=== PATIENT | female | born 1935 | race Two or more races ===

== ENCOUNTER 2022-11-20 05:25 | Emergency (ER) | payer OTHER ==
[~2022-11-20] VITALS: Ht 170.2 cm; Wt 72.6 kg
[2022-11-20 06:29] LABS: CALCIUM, SERUM 9.5 mg/dL (8.5-10.1); POTASSIUM 3.8 mmol/L (3.5-5.1)
[2022-11-20] MEDS ORDERED: MORPHINE SULFATE INJ 2 MG/ML DISP.SYRIN IV ONE (06:30)
[2022-11-20] MEDS ORDERED: ONDANSETRON HCL/PF - ER 4 MG/2 ML VIAL IV ONE (06:30)
[2022-11-20] MEDS ORDERED: IV NS 0.9% 1,000 ML BAG IV ONE (06:30)
[2022-11-20] MEDS ORDERED: MORPHINE SULFATE INJ 4 MG/ML DISP.SYRIN ONE (06:32)
[2022-11-20] MEDS ORDERED: ONDANSETRON HCL/PF 4 MG/2 ML VIAL ONE (06:32)
[2022-11-20 06:34] LABS: ALBUMIN 2.9 g/dL (3.4-5.0); BILIRUBIN,DIRECT 0.3 mg/dL (0.0-0.2); BILIRUBIN,TOTAL 1.1 mg/dL (0.2-1.0); TOTAL PROTEIN, SERUM 7.3 g/dL (6.4-8.2)
[2022-11-20 06:37] LABS: BASOPHILS % (AUTO) 0.1 % (0.0-2.0); EOSINOPHILS % (AUTO) 0.1 % (0.0-6.0); HEMATOCRIT 42 % (33-45); HEMOGLOBIN 14.3 g/dL (11.5-14.8); LYMPHOCYTES # (AUTO) 0.9 K/uL (0.8-4.8); LYMPHOCYTES % (AUTO) 6.8 % (20.0-44.0); MEAN CORPUSCULAR HGB CONC 34 g/dl (31.0-36.0); MEAN CORPUSCULAR VOLUME 90 fL (82-100); MONOCYTES # (AUTO) 0.7 K/uL (0.1-1.30); MONOCYTES % (AUTO) 5.1 % (2.0-12.0); NEUTROPHILS # (AUTO) 11.7 K/uL (1.8-8.9); NEUTROPHILS % (AUTO) 87.9 % (43.0-81.0); PLATELET COUNT (AUTO) 230 K/uL (150-450); RED BLOOD CELL COUNT(AUTO) 4.68 MIL/uL (4.0-5.2); WHITE BLOOD COUNT (AUTO) 13.3 K/uL (4.3-11.0)
--- NOTE | 2022-11-20 06:42 | NUR ---
BLOOD COLLECTED AND SENT TO LAB
--- NOTE | 2022-11-20 08:11 | NUR ---
LAB CALLED TO PROVIDE COVID SWAB
[2022-11-20] MEDS ORDERED: CEFEPIME 1 GM in IV D5W 50 ML IV ONE (09:00)
[2022-11-20] MEDS ORDERED: VANCOMYCIN 1 GM in IV D5W 250 ML IV ONE (09:00)
--- NOTE | 2022-11-20 10:48 | NUR ---
[facility] EMERGENCY ROOM NUMBER FOR REPORT [phone] SYDNEY GARAY (SURGERY) & DR BOZENA JONES (ER MD) PRN TRAnsportation eta [phone]
[2022-11-20] MEDS ORDERED: hydrALAZINE HCL IV 20 MG VIAL ONE (10:53)
[2022-11-20] MEDS ORDERED: hydrALAZINE HCL IV 20 MG VIAL IV ONE ×2 (11:00→12:00)
[2022-11-20 12:02] VITALS: BP 167/88
--- NOTE | 2022-11-20 12:10 | NUR ---
LATEST V/S BP-167/88, CA-95, O2 SAT-98%RA
--- NOTE | 2022-11-20 12:10 | NUR ---
PATIENT TAKEN BY [facility] STAFF FOR TRANSFER TO [facility] AND REPORT WAS GIVEN.
== END 2022-11-20 12:10 | disposition short-term general hospital (02) ==
LOC: ER 05:28
DX: K81.0 Acute cholecystitis (principal); I48.91 Unspecified atrial fibrillation; Z20.822 Contact with and (suspected) exposure to COVID-19; N28.9 Disorder of kidney and ureter, unspecified; I69.354 Hemiplegia and hemiparesis following cerebral infarction affecting left non-dominant side; I10 Essential (primary) hypertension; H26.9 Unspecified cataract; Z88.0 Allergy status to penicillin
CPT/HCPCS: 99291; 74176; 96365; 96375; 76700; 96367; 96361; 87426; 93005 ×2; 85025; 80048; 87040 ×2; 83605; 83690; 80076; 36415; 84484 ×2; J0360; J2270; J3370; J2405 ×2; J7060; J0692; C9803

== ENCOUNTER 2022-12-21 17:06 | Inpatient (IN) | payer OTHER ==
[~2022-12-21] VITALS: Ht 177.8 cm; Wt 63.0 kg
[2022-12-21] MEDS ORDERED: LEVOFLOXACIN 750 MG /D5W 150ML 750 MG in PREMIX 1 EA IV STA (17:23)
[2022-12-21] MEDS ORDERED: FLAGYL/NS RTU 500 MG/100 ML PIGGYBACK IV ONE (17:30)
--- NOTE | 2022-12-21 17:33 | NUR ---
established iv line left ac 20 g , infusing well
--- NOTE | 2022-12-21 17:33 | NUR ---
blood sample obtained
[2022-12-21] MEDS ORDERED: LEVOFLOXACIN 750 MG /D5W 150ML 150 ML IV ONE (17:43)
[2022-12-21 17:46] LABS: HEMATOCRIT 53 % (33-45); HEMOGLOBIN 16.2 g/dL (11.5-14.8); LYMPHOCYTES # (AUTO) 2.2 K/uL (0.8-4.8); LYMPHOCYTES % (AUTO) 11.1 % (20.0-44.0); MEAN CORPUSCULAR HGB CONC 31 g/dl (31.0-36.0); MEAN CORPUSCULAR VOLUME 93 fL (82-100); MONOCYTES # (AUTO) 1.1 K/uL (0.1-1.30); MONOCYTES % (AUTO) 5.7 % (2.0-12.0); NEUTROPHILS # (AUTO) 16.4 K/uL (1.8-8.9); NEUTROPHILS % (AUTO) 83.2 % (43.0-81.0); PLATELET COUNT (AUTO) 330 K/uL (150-450); RED BLOOD CELL COUNT(AUTO) 5.68 MIL/uL (4.0-5.2); WHITE BLOOD COUNT (AUTO) 19.7 K/uL (4.3-11.0)
[2022-12-21] MEDS ORDERED: METRONIDAZOLE 500MG/ NS 100ML 100 ML IV ONE (17:48)
--- NOTE | 2022-12-21 17:55 | NUR ---
PATIENT TAKEN TO CT VIA GURNEY WITH NURSING MONITORING
[2022-12-21 18:13] LABS: ALANINE AMINOTRANSFERASE 24 U/L (12-78); ALBUMIN 3.3 g/dL (3.4-5.0); ALKALINE PHOSPHATASE 136 U/L (46-116); ASPARTATE AMINOTRANSFERASE 25 U/L (15-37); BILIRUBIN,DIRECT 0.2 mg/dL (0.0-0.2); BILIRUBIN,TOTAL 0.7 mg/dL (0.2-1.0); CALCIUM, SERUM 10.2 mg/dL (8.5-10.1); CARBON DIOXIDE 27 mmol/L (21-32); CHLORIDE 110 mmol/L (98-107); CREATININE 3.9 mg/dL (0.6-1.3); GLUCOSE 171 mg/dL (74-106); POTASSIUM 5.5 mmol/L (3.5-5.1); SODIUM SERUM 150 mmol/L (136-145); TOTAL PROTEIN, SERUM 8.5 g/dL (6.4-8.2)
--- NOTE | 2022-12-21 18:30 | NUR ---
MOVE SHEET SUBMITTED.
[2022-12-21 18:35] LABS: UREA NITROGEN, BLOOD 128 mg/dL (7-18)
--- NOTE | 2022-12-21 18:57 | NUR ---
IN N OUT CATH PRESENT. STILL UNABLE TO OBTAIN URINE SAMPLE
[2022-12-21 19:07] LABS: LYMPHOCYTES % (MANUAL) 11 % (16-48); MONOCYTES % (MANUAL) 5 % (0-11.0); NEUTROPHILS % (MANUAL) 84 (42-76)
[2022-12-21] MEDS ORDERED: IV LR 1000 ML 1,000 ML IV ONE ×2 (19:30→20:00)
[2022-12-21] MEDS ORDERED: ASPIRIN 300 MG/SUPP.RECT RC ONE ×2 (19:30→19:41)
--- NOTE | 2022-12-21 19:38 | NUR ---
RECEIVED PATIENT AWAKE, WITH MOUTH WIDE OPEN. TRYING TO TALK BUT CANNOT FORM A PROPER WORD. PATIENT IS WITH OXYGEN INH AT 4LPM VIA NC. WITH LEFT AC G20 IV CANNULA AND RIGHT AC G18 IV CANNULA. PATIENT BP IN LOW SIDE. DR SANCHEZ MADE AWARE. TO ADD PLR 1L IV BOLUS. VITALS CHECKED. WILL CONTINUE TO MONITOR PT.
--- NOTE | 2022-12-21 20:03 | NUR ---
[facility] SPOKE WITH LYNDA. AWAITING MD CALL BACK.
[2022-12-21 20:15] LABS: BILIRUBIN,URINE NEGATIVE (NEGATIVE); COLOR,URINE YELLOW (YELLOW); LEUKOCYTE ESTERASE ,URINE TRACE (NEGATIVE); NITRITE, URINE NEGATIVE (NEGATIVE); PROTEIN,URINE NEGATIVE (NEGATIVE); UGLUCOSE NEGATIVE (NEGATIVE); UROBILINOGEN,URINE 0.2 EU/dL (0.2)
[2022-12-21 20:34] LABS: BACTERIA,URINE None seen /HPF (None Seen); RBC,URINE 0-2 /HPF (0-2); SQUAMOUS EPITHELIAL CELL,UR 0-2 /HPF (None Seen); WBC,URINE 0-2 /HPF (0-3)
--- NOTE | 2022-12-21 21:20 | NUR ---
REPEAT EKG DONE AT BEDSIDE
[2022-12-21] MEDS ORDERED: ACETAMINOPHEN 650 MG/SUPP.RECT RC PRN (22:30)
[2022-12-21] MEDS ORDERED: ONDANSETRON HCL/PF 4 MG/2 ML VIAL IVP PRN (22:30)
--- NOTE | 2022-12-21 22:48 | NUR ---
BONE CHAR KILN TENDER AT BEDSIDE FOR TROP
--- NOTE | 2022-12-21 22:51 | NUR ---
tele 105
--- NOTE | 2022-12-21 23:14 | NUR ---
CALLED SHAKILA RUIZ STILL WITH OTHER PATIENT.
--- NOTE | 2022-12-21 23:16 | NUR ---
RN NOTE RECEIVED ER ADMISSION REPORT FROM SHAKILA CALVO. ALL PERTINENT ADMISSION INFO REGARDING PT NOTED. WILL WAIT FOR PT TO BE TRANSFERRED TO UNIT AND ADDRESS NEEDS ACCORDINGLY. SHIPPING SPECIALIST MADE AWARE.
--- NOTE | 2022-12-21 23:22 | NUR ---
REPORT GIVEN TO SHAKILA NARVAEZ
[2022-12-21] MEDS ORDERED: IV D5W 1,000 ML IV PRN (23:26)
[2022-12-21] MEDS ORDERED: VANCOMYCIN 1 GM in IV D5W 250ml IV ONE (23:45)
[2022-12-21 23:48] LABS: CALCIUM, SERUM 9.1 mg/dL (8.5-10.1); CARBON DIOXIDE 21 mmol/L (21-32); CHLORIDE 114 mmol/L (98-107); CREATININE 3.3 mg/dL (0.6-1.3); GLUCOSE 131 mg/dL (74-106); POTASSIUM 4.8 mmol/L (3.5-5.1); SODIUM SERUM 146 mmol/L (136-145)
[2022-12-21 23:59] LABS: UREA NITROGEN, BLOOD 130 mg/dL (7-18)
[2022-12-22 00:10] VITALS: BP 127/75
--- NOTE | 2022-12-22 00:10 | NUR ---
RN NOTE RECEIVED PT FROM ER VIA THOR ACCOMPANIED BY 2 ER STAFF AND TRANSFERRED TO BED VIA 2-3 PERSON ASSIST. PT IS A/OX1-2; PT ON 2L OF O2 VIA NC WITH RESPIRATIONS EVEN AND UNLABORED. COMPREHENSIVE PHYSICAL ASSESSMENT AND PATIENT CARE DONE. CALL LIGHT WITHIN REACH, SAFETY MEASURES , WILL CONTINUE MONITOR AND ASSESS THROUGHOUT THE SHIFT. WILL CARRY OUT MD ORDERS ACCORDINGLY. COIL MACHINE OPERATOR MADE AWARE.
[2022-12-22] MEDS ORDERED: VANCOMYCIN 1 GM VIAL ONE (00:13)
--- NOTE | 2022-12-22 00:13 | NUR ---
TRANSFERRED TO [facility]IA [facility]
[2022-12-22] MEDS: HEPARIN SODIUM, PORCINE 5000 UNITS/1 ML VIAL SQ SCH ×2 (00:17→08:26)
--- NOTE | 2022-12-22 00:30 | NUR ---
RN NOTE PT'S TEMP LOW; KIRAN MARTINEZ UTILIZED, WILL CONTINUE TO ASSESS AND MONITOR.
[2022-12-22 04:00] VITALS: BP 133/84
--- NOTE | 2022-12-22 04:00 | NUR ---
RN NOTE PATIENT REMAINED TO BE IN NO SIGNS OF ACUTE RESPIRATORY DISTRESS, SAFE ENVIRONMENT MAINTAINED FOR PT. AM PATIENT CARE DONE. WILL CONTINUE TO MONITOR AND REASSESS FOR ANY CHANGES THROUGHOUT THE SHIFT.
--- NOTE | 2022-12-22 04:13 | NUR ---
RN NOTE RECEIVED CALL FROM [facility]; VERIFYING MD ORDER OF [facility] TO DOSE PER RECORD PT HAS ALLERGY TO PCN. NOTIFIED SHAYAN THOMPSON AND ACKNOWLEDGED PT INFO ([facility]) PER MD CONTINUE WITH THE ZOSYN. CALLBACK DONE TO [facility] [place] AND ADVISED INFO GIVEN BY SHAYAN THOMPSON (SPENCER,CORAL) TO CONTINUE WITH ZOSYN. PER PHARMACY STAFF NEED TO VERIFY WITH PT OR FAMILY TO CONFIRM ALLERGIC REACTION. RN ACKNOWLEDGED. WILL TRY CALLING PT'S FAMILY, IF UNSUCCESSFUL WILL ENDORSE TO AM SHIFT FOR FOLLOW THROUGH. Addendum: 12/22/22 at 0642 by NATY WINSTON RN NO FAMILY CONTACT INFO PER PT RECORD. WILL ENDORSE TO AM SHIFT TO FOLLOW THROUGH WITH MD AND PHARMACY
[2022-12-22 06:25] LABS: HEMATOCRIT 39 % (33-45); HEMOGLOBIN 12.4 g/dL (11.5-14.8); LYMPHOCYTES # (AUTO) 1.9 K/uL (0.8-4.8); LYMPHOCYTES % (AUTO) 8.3 % (20.0-44.0); MEAN CORPUSCULAR HGB CONC 32 g/dl (31.0-36.0); MEAN CORPUSCULAR VOLUME 92 fL (82-100); MONOCYTES # (AUTO) 1.6 K/uL (0.1-1.30); MONOCYTES % (AUTO) 6.7 % (2.0-12.0); NEUTROPHILS # (AUTO) 19.7 K/uL (1.8-8.9); PLATELET COUNT (AUTO) 237 K/uL (150-450); RED BLOOD CELL COUNT(AUTO) 4.17 MIL/uL (4.0-5.2); WHITE BLOOD COUNT (AUTO) 23.2 K/uL (4.3-11.0)
--- NOTE | 2022-12-22 06:45 | NUR ---
RN CLOSING NOTE: PATIENT REMAINS IN ROOM IN NO SIGNS OF RESPIRATORY DISTRESS, PATIENT STILL ON 4L OF 02 VIA NC ;TOLERATING WELL SATURATING @ >95% SP02. SAFETY MEASURES IMPLEMENTED, BED IN LOWEST POSITION, LOCKED, SIDE RAILS UP, CALL LIGHT WITHIN REACH. ALL NEEDS AND ORDERS ADDRESSED DURING THE SHIFT. IV ACCESS MAINTAINED INTACT, SECURED AND FLUSHING WELL. IV FLUIDS RUNNING PER MD ORDER/ ALL DUE MEDS GIVEN ORDERED & SCHEDULED ; PATIENT TOLERATED WELL. PATIENT KEPT CLEAN AND COMFORTABLE WITHIN THE SHIFT. AM SHIFT TO FOLLOW UP WITH PHARMACY AND AM SHIFT MD REGARDING ANTIBIOTIC ORDER IN RELATION TO PT'S ALLERGIES. PATIENT ENDORSED TO INCOMING SHIFT RN WITH STABLE VITAL SIGN AND FOR CONTINUITY OF CARE.
[2022-12-22 07:18] LABS: CHOLESTEROL 119 mg/dL (<200); HDL CHOLESTEROL 24 mg/dL (40-60); LDL 67 mg/dL (0-99); TRIGLYCERIDES 192 mg/dL (30-150)
--- NOTE | 2022-12-22 07:20 | NUR ---
RN OPEN NOTE: RECIEVED PATIENT IN BED , ALERT , ORIENTED TIMES 1 , CONFUSED IN NO SIGNS OF RESPIRATORY DISTRESS, ON 4L OF 02 VIA NC ;TOLERATING WELL SATURATING @ >95% SP02. ALL SAFETY MEASURES IN PLACE , BED IN LOWEST POSITION, LOCKED, SIDE RAILS UP, CALL LIGHT WITHIN REACH. IV ACCESS ON LAC 20 G MAINTAINED INTACT, SECURED AND FLUSHING WELL. IV FLUIDS RUNNING D5 AT 100 ML/HR PATIENT TOLERATED WELL. PATIENT IS NPO AT THIS TIME DUE TO CONFUSED AND AWAITING SWALLOW EVAL , WILL TO FOLLOW UP WITH PHARMACY AND MD REGARDING ANTIBIOTIC ORDER IN RELATION TO PT'S ALLERGIES. WILL CONTINUE TO MONITOR
[2022-12-22 07:27] LABS: CALCIUM, SERUM 8.6 mg/dL (8.5-10.1); CARBON DIOXIDE 24 mmol/L (21-32); CHLORIDE 112 mmol/L (98-107); CREATININE 2.9 mg/dL (0.6-1.3); GLUCOSE 186 mg/dL (74-106); MAGNESIUM 2.5 mg/dL (1.8-2.4); PHOSPHORUS 5.4 mg/dL (2.5-4.9); POTASSIUM 4.2 mmol/L (3.5-5.1); SODIUM SERUM 147 mmol/L (136-145)
[2022-12-22 07:29] LABS: UREA NITROGEN, BLOOD 124 mg/dL (7-18)
[2022-12-22] MEDS ORDERED: VANCOMYCIN 500 MG in IV D5W 100 ML IV ONE (07:30)
[2022-12-22] MEDS ORDERED: HYDR-4075 PO (08:01)
[2022-12-22] MEDS ORDERED: CARV25TA PO (08:01)
[2022-12-22] MEDS ORDERED: BISA10SU11 RC (08:01)
[2022-12-22] MEDS ORDERED: LOSA100T31 PO (08:01)
[2022-12-22] MEDS ORDERED: ATOR80TA PO (08:01)
[2022-12-22] MEDS ORDERED: ACET325T53 PO (08:01)
[2022-12-22] MEDS ORDERED: ONDA4TAB11 PO (08:01)
[2022-12-22] MEDS ORDERED: DIGO250T PO (08:01)
[2022-12-22] MEDS ORDERED: ALBU8.5H8 IH (08:01)
[2022-12-22] MEDS ORDERED: CLON0.1T PO (08:01)
[2022-12-22] MEDS ORDERED: LORA-259 PO (08:01)
[2022-12-22] MEDS ORDERED: APIX2.5T PO (08:01)
[2022-12-22] MEDS ORDERED: SPIR25TA6 PO (08:01)
[2022-12-22 08:08] VITALS: BP 101/54
[2022-12-22] MEDS ORDERED: APIXABAN 2.5 MG TABLET PO SCH ×2 (09:00→17:00)
[2022-12-22] MEDS ORDERED: PANTOPRAZOLE 40 MG VIAL IV SCH (09:00)
[2022-12-22] MEDS ORDERED: ASPIRIN 81 MG TAB.CHEW PO SCH (09:00)
[2022-12-22 12:00] VITALS: BP 107/54
[2022-12-22 16:04] VITALS: BP 109/73
[2022-12-22] MEDS ORDERED: IV 1/2NS 1000 ML 1,000 ML IV SCH (17:30)
--- NOTE | 2022-12-22 18:35 | NUR ---
RN CLOSING NOTE: PATIENT REMAINS IN ROOM IN NO SIGNS OF RESPIRATORY DISTRESS, PATIENT STILL ON 4L OF 02 VIA NC ;TOLERATING WELL SATURATING @ >95% SP02. SAFETY MEASURES IMPLEMENTED, BED IN LOWEST POSITION, LOCKED, SIDE RAILS UP, CALL LIGHT WITHIN REACH. ALL NEEDS AND ORDERS ADDRESSED DURING THE SHIFT. IV ACCESS MAINTAINED INTACT, SECURED AND FLUSHING WELL. IV FLUIDS RUNNING PER MD ORDER/ ALL DUE MEDS GIVEN ORDERED & SCHEDULED ; PATIENT TOLERATED WELL. PATIENT KEPT CLEAN AND COMFORTABLE WITHIN THE SHIFT. PATIENT WAS DISCHARGED TODAY TO THE [facility] TIME AFTER 9 PM
[2022-12-22 20:00] VITALS: BP 125/71
--- NOTE | 2022-12-22 21:53 | NUR ---
[facility]/PIANO MACHINE OPERATOR PT IS LEAVING TO GO TO [facility]
[2022-12-22] MEDS ORDERED: ATORVASTATIN 10 MG TABLET PO SCH (22:00)
--- NOTE | 2022-12-22 22:06 | NUR ---
[facility]/ROSETTA PT IS GONE TO [place] WITH AMBULANCE SERVICE
[2022-12-23] MEDS ORDERED: LEVOFLOXACIN 500 MG /D5W 100ML 500 MG in PREMIX 1 EA IV SCH (09:00)
[2022-12-25] MEDS ORDERED: VANCOMYCIN 1 GM in IV D5W 250 ML IV SCH (08:00)
== END 2022-12-23 03:32 | disposition short-term general hospital (02) | DRG 682 ==
LOC: ER 17:08 → TELE1 22:59
PROVIDERS: ADMIT Nurse Practitioner Acute Care; ATTEND Internal Medicine
DX: N17.0 Acute kidney failure with tubular necrosis (principal); G93.41 Metabolic encephalopathy; I21.A1 Myocardial infarction type 2; N39.0 Urinary tract infection, site not specified; I69.354 Hemiplegia and hemiparesis following cerebral infarction affecting left non-dominant side; E87.20 Acidosis, unspecified; E44.1 Mild protein-calorie malnutrition; E87.0 Hyperosmolality and hypernatremia; R47.01 Aphasia; Z20.822 Contact with and (suspected) exposure to COVID-19; I10 Essential (primary) hypertension; I48.91 Unspecified atrial fibrillation; Z88.0 Allergy status to penicillin; Z93.59 Other cystostomy status; E86.0 Dehydration; E88.09 Other disorders of plasma-protein metabolism, not elsewhere classified; E83.52 Hypercalcemia; K82.8 Other specified diseases of gallbladder; G93.89 Other specified disorders of brain; E86.1 Hypovolemia; Z79.01 Long term (current) use of anticoagulants; Z79.51 Long term (current) use of inhaled steroids; Z79.899 Other long term (current) drug therapy; E11.36 Type 2 diabetes mellitus with diabetic cataract
CPT/HCPCS: 36415; 70450-TC; 71045-TC; 80048-TC; 80061-TC; 80076-TC; 80162-TC; 81001; 82962-TC; 83605-TC; 83735-TC; 84100-TC; 84484-TC; 85025-TC; 85730-TC; 87040-TC; 87081-TC; 87086-TC; 93307-TC; A4216; A4223; C9113; C9803; G0378; J1644; J1956; J3370; J3490; J7042; J7060; J7070; J7120